=== PATIENT | female | born 1980 | race Caucasian/White ===

== ENCOUNTER 2016-07-03 19:58 | Emergency (ER) | payer MEDICAID ==
[~2016-07-03] VITALS: Ht 162.6 cm; Wt 98.5 kg
[2016-07-03 20:26] VITALS: Ht 162.6 cm; Wt 98.5 kg
[2016-07-03] MEDS ORDERED: AMO500 PO (20:59)
[2016-07-03] MEDS ORDERED: IBUP-1542 PO (21:00)
--- NOTE | 2016-07-03 21:36 | ERD ---
ER Documentation Chief Complaint Date/Time DATE: 07/03/16 TIME: 21:34 Chief Complaint sore throat/painful swallowing since yesterday HPI This is a 35-year-old female presents to the ER with sore throat, headache, right ear pain for the last 2 days. Patient denies any fevers or chills. She denies any shortness of breath or any chest pain. Sore throat is worse whenever she swallows, she however denies any difficulty in swallowing. Headache is located on her for head and is throbbing in quality. Right ear pain is severe and intermittent. There are no sick contacts at home. Patient has not taken any medication to help her pain. ROS 12 point review of systems was done, all negative except per HPI. Medications Home Meds Active Scripts Ibuprofen* (Motrin*) 600 Mg Tab, 600 MG PO Q6, #30 TAB Prov:SHELBIE PABLONA C 07/03/16 Amoxicillin* (Amoxicillin*) 500 Mg Cap, 500 MG PO BID for 10 Days, CAP Prov:DARON PABLO 07/03/16 Allergies Allergies: Coded Allergies: No Known Drug Allergy (Verified Allergy, Unknown, 07/03/16) PMhx/Soc History of Surgery: Yes (GALL BLADDER 2010) Anesthesia Reaction: No Hx Neurological Disorder: No Hx Respiratory Disorders: No Hx Cardiac Disorders: No Hx Psychiatric Problems: No Hx Miscellaneous Medical Probl: Yes (KIDNEY STONES) Hx Alcohol Use: No Hx Substance Use: No Hx Tobacco Use: No Physical Exam Vitals Vital Signs Date Time Temp Pulse Resp B/P Pulse Ox O2 Delivery O2 Flow Rate FiO2 07/03/16 20:26 100.7 98 20 135/66 98 Physical Exam GENERAL: The patient is well-developed, well-nourished, in no acute distress. NECK: Cervical spine is non tender with no step off. Supple, no nuchal rigidity HEENT: Atraumatic. Pupils equal, round and reactive to light. Extraocular muscles are grossly intact. Conjunctivae pink, no discharge. Right erythematous tympanic membrane. Tonsilar erythema with no exudates or uvular deviation. Clear rhinorrhea. RESPIRATORY: Clear to auscultation bilaterally. There are no rales, wheezes or rhonchi. HEART: Regular rate and rhythm. No murmurs, clicks, rubs or gallops. EXTREMITIES: No clubbing or cyanosis. Full range of motion. Grossly neurovascularly intact. NEUROLOGIC: Alert and oriented. Cranial nerves II through XII are intact. SKIN: There is no rash. The skin is warm and dry. Procedures/MDM Differential diagnosis includes but is not limited to; Viral URI, allergic rhinitis, bronchitis, pertussis,pneumonia. Patient did have otitis media on physical examination. She'll be sent home with amoxicillin. I doubt mastoiditis as there is no mastoid tenderness. Clinical suspicion for pneumonia is low as patient appears well, is not hypoxic or in any respiratory distress. Additionally, patients physical examination is benign. Plan was discussed with patient they understand and agree. Patient needs to follow up with PCP in 1-2 days or return to ER sooner if symptoms worsen. Departure Diagnosis: Primary Impression: Otitis media Patient Instructions: Otitis Media, Abx Tx (Adult) Additional Instructions: Call your primary care doctor TOMORROW for an appointment during the next 1-2 days.See the doctor sooner or return here if your condition worsens before your appointment time. DARON PABLO Jul 03, 2016 21:36
== END 2016-07-03 21:02 | disposition home or self-care (01) ==
LOC: E/R 19:58
DX: H66.91 Otitis media, unspecified, right ear (principal)
CPT/HCPCS: 99283

== ENCOUNTER 2017-01-07 11:29 | Emergency (ER) | END 2017-01-07 13:54 | disposition home or self-care (01) | DX: R42 Dizziness and giddiness (principal); R11.0 Nausea | CPT/HCPCS: 81001; 82962; 93005; Z7502; Z7610 ==

== ENCOUNTER 2017-04-13 17:29 | Emergency (ER) | payer MEDICAID ==
[~2017-04-13] VITALS: Wt 99.4 kg
[~2017-04-13 17:29] MED LIST: AMOX500C2 PO; IBUP-1542 PO; MECL-77 PO
[2017-04-13] MEDS ORDERED: KETOROLAC 15 MG INJ IM STA (19:12)
--- NOTE | 2017-04-13 19:12 | ERD ---
ER Documentation Chief Complaint Chief Complaint swenson, n/v HPI This 36 yr female reports headache bilateral frontal , described as bounding , photo sensitivity, n/v x 1 this morning , right sided pelvic pain, denies dysuria. s/p cholecystectomy. Patient reports history of migraines, denies that this headache is the worst headache she has ever had in her life, denies a thunderclap headache, she has tried ibuprofen for headache. Denies change in vision, change in behavior, or dizziness ROS All systems reviewed and are negative except as per history of present illness. Medications Home Meds Active Scripts Ibuprofen* (Motrin*) 800 Mg Tab, 800 MG PO Q6, #30 TAB Prov:ANAISLIONEL 04/13/17 Meclizine Hcl* (Meclizine Hcl*) 25 Mg Tablet, 25 MG PO Q8H Y for DIZZINESS, #20 TAB Prov:LEXI HENDRIX MD 01/07/17 Ibuprofen* (Motrin*) 600 Mg Tab, 600 MG PO Q6, #30 TAB Prov:BEV,DARON C 07/03/16 Amoxicillin* (Amoxicillin*) 500 Mg Cap, 500 MG PO BID for 10 Days, CAP Prov:DARON PABLO C 07/03/16 Allergies Allergies: Coded Allergies: No Known Drug Allergy (Verified Allergy, Unknown, 07/03/16) PMhx/Soc History of Surgery: Yes (GALL BLADDER removal 2010) Anesthesia Reaction: No Hx Neurological Disorder: No Hx Respiratory Disorders: No Hx Cardiac Disorders: No Hx Psychiatric Problems: No Hx Miscellaneous Medical Probl: Yes (KIDNEY STONES) Hx Alcohol Use: No Hx Substance Use: No Hx Tobacco Use: No Smoking Status: Never smoker Physical Exam Vitals Vital Signs Date Time Temp Pulse Resp B/P Pulse Ox O2 Delivery O2 Flow Rate FiO2 04/13/17 17:32 100.7 102 20 140/72 98 Vitals stable, triage notes reviewed Physical Exam Const: Well-nourished well-appearing well-hydrated 36-year-old female in no acute distress Head: Eyes: Normal Conjunctiva, PERRLA, EOMI, no nystagmus ENT: Bilateral tympanic membranes translucent, auditory canals are clear, nasal mucosa moist, mucous membranes moist Neck: Full range of motion..~ No meningismus. Resp: Cardio: Abd: Soft, pelvic tenderness, non distended, no CVA tenderness Skin: Back: Ext: Neur: Alert and oriented Face: EOMI, face and pharynx with normal sensation and function Motor: Normal strength throughout Sensation: Normal sensation throughout Speech: Normal Cerebel: Normal coordination Normal gait Psych: Normal Mood and Affect Results 24 hrs Laboratory Tests Test 04/13/17 19:25 Urine Color YELLOW Urine Clarity CLEAR Urine pH 6.0 Urine Specific Lawrence 1.023 Urine Ketones NEGATIVEmg/dL Urine Nitrite NEGATIVEmg/dL Urine Bilirubin NEGATIVEmg/dL Urine Urobilinogen 1+mg/dL Urine Leukocyte Esterase NEGATIVELeu/ul Urine Hemoglobin NEGATIVEmg/dL Urine Glucose NEGATIVEmg/dL Urine Total Protein NEGATIVEmg/dl Current Medications Medications (Trade) Dose Ordered Sig/Ethan Route PRN Reason Start Time Stop Time Status Last Admin Dose Admin Ketorolac Tromethamine (Toradol) 15 mg ONCE STAT IM 04/13/17 19:12 04/13/17 19:15 DC 04/13/17 20:31 Diphenhydramine HCl (Benadryl) 50 mg ONCE ONCE PO 04/13/17 19:30 04/13/17 19:31 DC 04/13/17 20:33 Metoclopramide HCl (Reglan) 10 mg ONCE ONCE PO 04/13/17 19:30 04/13/17 19:31 DC 04/13/17 20:31 Urinalysis negative for evidence of infection, UA hCG negative for evidence of . Procedures/MDM This 36-year-old female presents to emergency department for complaint of headache, photosensitivity, nausea, vomiting and pelvic pain. Reports that symptoms started this morning without exact time noted, denies thunderclap headache, I have low suspicion for subarachnoid bleed, emergency room course includes history and physical, patient's neurological findings are within normal limits. Plan to treat headache with headache cocktail of Toradol, Benadryl, Reglan. Urinalysis obtained negative for evidence of infection, UA hCG negative for evidence of . Patient reassessed after 60 minutes with improvement of headache symptoms, plan to discharge patient home with ibuprofen 800 mg, instructions to follow-up with primary care physician for complete headache evaluation, return to emergency department if symptoms return , or fail to improve as anticipated. Return to emergency department for change in vision, behavior, or numbness or tingling to extremities. Patient is stable with no new complaints during ER course, clinically there is no current evidence to suggest meningitis, sepsis, acute abdomen, acute coronary syndromes , subarachnoid bleed, subdural hematoma,'s intracranial mass, or any other emergent condition appearing to require further evaluation or hospitalization. I feel the patient is stable for discharge at this time. I have discussed results, examination findings, the treatment plan with the patient and family present prior to discharge. Indications for emergent reevaluation, side effects of medication were also discussed. All questions were answered. Patient verbalizes understanding and agrees with plan of care. Departure Diagnosis: Primary Impression: Headache Headache type: tension-type Headache chronicity pattern: acute headache Intractability: not intractable Qualified Code: G44.209 - Acute non intractable tension-type headache Condition: Good Patient Instructions: Self-Care for Headaches Additional Instructions: Thank you for for coming to [facility] for your care today. Please ask your nurse or provider if you have questions about your care today and do not leave until all your questions have been answered. Please use any medications given as directed and follow-up with your doctor (or the doctor you were referred to) in the next 2-3 days. If you do not have a primary care doctor you may follow up at the [facility] (listed below). You may also use motrin and tylenol as needed for fever and/or pain unless instructed otherwise by your provider or nurse. Indications for more urgent follow-up have been discussed, but you may return to the Emergency Department at ANY time for any worrisome or worsening symptoms. If you have abdominal pain, please know that no test or exam you received is perfect and you should follow up within 8 hours for continued pain. If you had any imaging studies today, such as an X-Ray or CT Scan, these studies will be reviewed later by a radiologist. You will be called if there are important findings that were not identified today, so make sure the contact information you provided at registration is correct. If you received any narcotic pain control medicine today, such as Vicodin, Morphine or Dilaudid, your coordination and judgment may be affected for a number of hours. Please do not drive or operate heavy machinery, and you may want someone to assist you at home. If you were given a prescription for narcotic medication, be aware that it is very addictive- use sparingly and only if necessary. LIONEL MANZO Apr 13, 2017 19:12
[2017-04-13] MEDS ORDERED: DIPHENHYDRAMINE 50 MG CAP PO ONE (19:30)
[2017-04-13] MEDS ORDERED: METOCLOPRAMIDE 10 MG TAB PO ONE (19:30)
[2017-04-13 19:40] LABS: ADD UMIC NO; UR ASCORBIC ACID NEGATIVE (NEGATIVE); UR BILIRUBIN (Dip) NEGATIVE (NEGATIVE); UR BLOOD (Dip) NEGATIVE (NEGATIVE); UR CLARITY CLEAR (CLEAR); UR COLOR YELLOW (YELLOW); UR GLUCOSE (Dip) NEGATIVE (NEGATIVE); UR KETONES (Dip) NEGATIVE (NEGATIVE); UR LEUKOCYTE ESTERASE (Dip) NEGATIVE Leu/ul (NEGATIVE); UR NITRITE (Dip) NEGATIVE (NEGATIVE); UR SPECIFIC GRAVITY (Dip) 1.023 (1.003-1.030); UR TOTAL PROTEIN (Dip) NEGATIVE (NEGATIVE); UR UROBILINOGEN (Dip) 1+ mg/dL (NEGATIVE)
[2017-04-13] MEDS ORDERED: IBUP800T25 PO (20:33)
== END 2017-04-13 20:55 | disposition home or self-care (01) ==
LOC: FTE 17:29
DX: G44.209 Tension-type headache, unspecified, not intractable (principal)
CPT/HCPCS: 81003; 96372; J1885; Z7502; Z7610

== ENCOUNTER 2017-08-04 12:19 | Emergency (ER) | END 2017-08-04 14:10 | disposition home or self-care (01) ==